=== PATIENT | male | born 1970 | race Caucasian/White ===

== ENCOUNTER → 2016-10-17 | Day surgery (SDC) | payer MEDICARE, BC ==
[~2016-10-17] MED LIST: ACID CONTROL150 MG PO; ASPIR-LOW81 MG PO; BREO ELLIPTA 11 EACH INH; COLACE 100MG C100 MG PO; HUMALOG100 UNIT/2 SQ; HYDRALAZINE HCL10 MG PO; METOPROLOL SUCC25 MG PO; MIRALAX17 GM PO; NORVASC 5 MG TAB5 MG PO; PHENERGAN 12.12.5 M1 PO; PHOSLO 667 MG667 MG PO; PROAIR HFA8.5 GM INH; PROTONIX 40 MG40 M1 PO; SENSIPAR30 MG PO; SUMATRIPTAN SU100 MG PO; VELPHORO500 MG PO; ZOFRAN4 MG PO
== END | disposition home or self-care (01) ==
LOC: OR 06:31
PROVIDERS: Internal Medicine Pulmonary Disease
PROC: 0BB68ZX Excision of Right Lower Lobe Bronchus, Via Natural or Artificial Opening Endoscopic, Diagnostic (ICD-10-PCS; 2016-10-17)
PROC: 0B968ZX Drainage of Right Lower Lobe Bronchus, Via Natural or Artificial Opening Endoscopic, Diagnostic (ICD-10-PCS; principal; 2016-10-17 07:30)
DX: J42 Unspecified chronic bronchitis (principal); I12.9 Hypertensive chronic kidney disease with stage 1 through stage 4 chronic kidney disease, or unspecified chronic kidney disease; I20.9 Angina pectoris, unspecified; E11.43 Type 2 diabetes mellitus with diabetic autonomic (poly)neuropathy; K31.84 Gastroparesis; J45.909 Unspecified asthma, uncomplicated; E11.22 Type 2 diabetes mellitus with diabetic chronic kidney disease; E78.5 Hyperlipidemia, unspecified; N18.6 End stage renal disease; J44.9 Chronic obstructive pulmonary disease, unspecified; I25.2 Old myocardial infarction; Z79.82 Long term (current) use of aspirin; Z79.899 Other long term (current) drug therapy; Z87.01 Personal history of pneumonia (recurrent)
CPT/HCPCS: 82962; 87015; 87070; 87102; 87116; 87205; J2250; J7120

== ENCOUNTER → 2020-12-13 | Outpatient (CLI) | payer MEDICARE, BC ==
[~2020-12-13] MED LIST changes: +IMITREX100 MG PO; +LINZESS145 MCG PO; +PLAVIX 75 MG TA75 MG PO
== END ==
LOC: KOH-I 11:44
DX: M25.552 Pain in left hip (principal)
CPT/HCPCS: 73502